=== PATIENT | male | born 1935 | race Caucasian/White ===

== ENCOUNTER 2018-09-20 08:45 | Outpatient (REF) | payer MEDICARE, OTHER, SELFPAY ==
[2018-09-20 22:39] LABS: Anion Gap 8.5 mmol/L (3-11); BUN 17 mg/dL (7-18); CO2 26.5 mmol/L (21.0-32.0); CREATININE 0.88 mg/dL (0.70-1.30); Chloride 103 mmol/L (98-107); Glucose 149 mg/dL (70-100); Potassium 4.5 mmol/L (3.5-5.1); Sodium 138 mmol/L (136-145)
[2018-09-20 23:07] LABS: Hemoglobin A1C 6.6 % (4.5-6.2)
== END 2018-09-20 09:05 ==
LOC: NCHCN 08:45
PROVIDERS: PCP Internal Medicine; Visit Provider Internal Medicine
DX: E11.9 Type 2 diabetes mellitus without complications (principal); I25.10 Atherosclerotic heart disease of native coronary artery without angina pectoris
CPT/HCPCS: 80048; 83036

== ENCOUNTER 2019-11-27 14:16 | Outpatient (REF) | payer MEDICARE, OTHER, SELFPAY ==
[2019-11-27 22:18] LABS: Anion Gap 12.2 mmol/L (3-11); BUN 15 mg/dL (7-18); CO2 24.8 mmol/L (21.0-32.0); CREATININE 0.91 mg/dL (0.70-1.30); Calcium 9.3 mg/dL (8.5-10.1); Calculated LDL 66 mg/dL (<100); Chloride 105 mmol/L (98-107); Cholesterol 136 mg/dL (<200); Glucose 116 mg/dL (74-106); HDL Cholesterol 50 mg/dL (40-60); Potassium 4.2 mmol/L (3.5-5.1); Sodium 142 mmol/L (136-145); Triglyceride 102 mg/dL (<150)
== END 2019-11-27 14:36 ==
LOC: NCHCN 14:16
PROVIDERS: PCP Internal Medicine; Visit Provider Internal Medicine
DX: E11.9 Type 2 diabetes mellitus without complications (principal); I10 Essential (primary) hypertension; E78.5 Hyperlipidemia, unspecified; M54.2 Cervicalgia
CPT/HCPCS: 80048; 80061; 83036

== ENCOUNTER 2019-12-05 21:45 | Outpatient (REF) | payer MEDICARE, OTHER, SELFPAY ==
[2019-12-05 22:21] LABS: COMMENT (LAB VIEW ONLY) 120.26 mg/dL; Microalb ug/mg Crea 27.7 ug/mg Cr
== END 2019-12-05 22:05 ==
LOC: NCHCN 21:45
PROVIDERS: PCP Internal Medicine; Visit Provider Internal Medicine
DX: E11.9 Type 2 diabetes mellitus without complications (principal)
CPT/HCPCS: 82043; 82570